=== PATIENT | male | born 1995 | race Caucasian/White ===

== ENCOUNTER 2024-11-24 14:50 | Emergency (ER) | payer OTHER ==
[2024-11-24 14:58] VITALS: BP 133/65; PULSE 60; RESP 20; TEMP 98.3; BMI 31.9
[2024-11-24] MEDS ORDERED: KETOROLAC TROMETHAMINE 30 MG/1 ML VIAL ONE (16:07)
[2024-11-24] MEDS: KETOROLAC TROMETHAMINE 30 MG/1 ML VIAL IM ONE (16:16)
== END 2024-11-24 16:42 | disposition home or self-care (01) ==
LOC: JERFT 14:50
PROC: 3E0233Z Introduction of Anti-inflammatory into Muscle, Percutaneous Approach (ICD-10-PCS; principal; 2024-11-24)
DX: M25.512 Pain in left shoulder (principal); X50.0XXA Overexertion from strenuous movement or load, initial encounter; Y99.0 Civilian activity done for income or pay
CPT/HCPCS: 73030-TC-LT-FY; 99284-25